=== PATIENT | female | born 1980 | race Hispanic/Latino ===

== ENCOUNTER 2020-01-09 09:53 | Emergency (ER) | payer OTHER, SELFPAY ==
[2020-01-09 10:03] VITALS: BP 129/90; PULSE 16; RESP 16; TEMP 36.5; O2SAT 97
--- NOTE | 2020-01-09 10:12 | ED.EXTPRO ---
HPI - Extremity Problem General Chief complaint: Extremity Injury, Lower Stated complaint: right foot heel pain Time Seen by Provider: 01/09/20 10:07 Source: patient and RN notes reviewed Mode of arrival: ambulatory Limitations: no limitations History of Present Illness HPI Narrative: Patient presents today complaining of heel pain x2 weeks that has been worsening since onset. Denies injury or trauma. Denies numbness or tingling in the foot or toes. She has tried no [id number] interventions or medications for pain prior to arrival. Pain increases with walking or standing. MD Complaint: extremity pain Related Data Allergies Allergy/AdvReac Type Severity Reaction Status Date / Time No Known Allergies Allergy Verified 06/09/19 09:59 Review of Systems Review of Systems: Narrative: CONSTITUTIONAL: Denies body aches, fever, chills, or sweats. EYES: Denies visual changes, redness, or discharge. ENT: Denies rhinorrhea, congestion, sore throat, or otalgia. CARDIOVASCULAR: Denies chest pain, palpitations, or edema. RESPIRATORY: Denies cough or dyspnea. GASTROINTESTINAL: Denies abdominal pain, nausea, vomiting, or diarrhea. GENITOURINARY: Denies dysuria or hematuria. SKIN: Denies rash, itching, or wounds. MUSCULOSKELETAL: Denies back pain, joint pain, or myalgia. Right heel pain NEUROLOGIC: Denies headache, numbness, tingling, or weakness. PSYCH: Denies depression or anxiety. PMFSH Comments At time of signature, I have reviewed and agree with nursing past medical, surgical, social and family history unless otherwise noted. Please see nursing chart for further information. There is no relevant family history pertinent to the presenting complaint Exam Narrative: Exam Narrative: GENERAL: Well-appearing, well-nourished, and in no acute distress. HEAD: Normocephalic, atraumatic. EYES: EOMI. No redness or drainage. Conjunctivae normal. ENT: Mucous membranes pink and moist. NECK: Normal AROM. CHEST: No respiratory distress. EXTREMITIES: Right foot: Tenderness to the right plantar fascia extending to the posterior heel. Distal sensation intact. Capillary refill normal. Pedal pulse normal. No edema or discoloration noted. Full range of motion of the toes and ankle. SKIN: Warm, dry, no rash. Capillary refill normal. Normal skin turgor. NEURO: No focal deficits. Alert and oriented x3. Gait steady. PSYCH: Normal affect. No signs of depression or anxiety. Course Vital Signs Vital signs: Vital Signs Temperature 97.7 F 01/09/20 10:03 Pulse Rate 16 L 01/09/20 10:03 Respiratory Rate 16 01/09/20 10:03 Blood Pressure 129/90 01/09/20 10:03 Pulse Oximetry 97 01/09/20 10:03 Temperature 97.7 F 01/09/20 10:03 Pulse Rate 16 L 01/09/20 10:03 Respiratory Rate 16 01/09/20 10:03 Blood Pressure 129/90 01/09/20 10:03 Pulse Oximetry 97 01/09/20 10:03 Reviewed. Pt has been instructed to follow up with her PCP regarding her elevated blood pressure today. MDM - Extremity (Nontraumatic) Differential Diagnosis Differential diagnosis: Likely gout, cellulitis, lower extremity edema and other (Foot sprain, plantar fasciitis) Critical Care Time Critical Care Time Critical Care Time: No Discharge Plan Discharge Clinical Impression: Plantar fasciitis of right foot Patient Disposition: Home, Self-Care Condition: Stable Instructions: Plantar Fasciitis (ED) Additional Instructions: Your symptoms are likely due to plantar fasciitis. Start an anti-inflammatory such as Aleve or ibuprofen to help with pain. Consider purchasing some silicone heel cups for your shoes. Stretch your heel and calf. Follow-up with your PCP or recreational aide in 1 to 2 weeks if symptoms are not improving. Your blood pressure was elevated above 120/80 today at Urgent Care. This puts you above the threshold for follow up. Please schedule a followup visit with your personal physician as soon as possible, for further evaluati
== END 2020-01-09 10:23 | disposition home or self-care (01) ==
PROVIDERS: Emergency Provider Nurse Practitioner
DX: M72.2 Plantar fascial fibromatosis (principal); Z98.84 Bariatric surgery status
CPT/HCPCS: 99211; G0463

== ENCOUNTER 2023-09-28 08:46 | Emergency (ER) | payer BC, SELFPAY ==
--- NOTE | 2023-09-28 08:53 | ED.URI ---
HPI - URI/Sore Throat General Chief Complaint: Upper Respiratory Infection Stated Complaint: Sinus History of Present Illness HPI Narrative: 43 y/o female presented for c/o sore throat, cough, and chest congestion for one week. Denies sob, wheezing, n/v/d/f/c. Taking Dayquil and Nyquil. Related Data Home Medications Medication Instructions Recorded Confirmed bupropion HCl 300 mg 24 hr tablet, 300 mg PO DAILY 09/28/23 09/28/23 extended release tirzepatide 10 mg/0.5 mL 1 mg subcut DIRECTED 09/28/23 09/28/23 subcutaneous pen injector (Mounjaro) Allergies Allergy/AdvReac Type Severity Reaction Status Date / Time No Known Allergies Allergy Verified 09/28/23 09:10 Review of Systems Review of Systems: CONSTITUTIONAL: Denies body aches, fever, chills, or sweats. EYES: Denies visual changes, redness, or discharge. ENT: Reports rhinorrhea, congestion, sore throat denies otalgia. CARDIOVASCULAR: Denies chest pain, palpitations, or edema. RESPIRATORY: reports cough Denies dyspnea. GASTROINTESTINAL: Denies abdominal pain, nausea, vomiting, or diarrhea. SKIN: Denies rash, itching, or wounds. MUSCULOSKELETAL: Denies back pain, joint pain, or myalgia. NEUROLOGIC: Denies headache Exam Narrative: GENERAL: well-appearing EYES: conjunctivae clear ENT: Mucous membranes moist. TM pearly garcia with normal light reflex bilaterally; no tragal tenderness. Oropharynx not erythematous without lesions. Tonsils enlarged and without exudate. No drooling, no hoarseness, no trismus, uvula midline. No tripod positioning, hot potato voice, or soft palate swelling. NECK: Supple. No lymphadenopathy CHEST: Clear to auscultation, breath sounds equal. No respiratory distress, speaks in full sentences. HEART: Regular rate and rhythm. No murmur heard. SKIN: Warm, dry, no rash. NEURO: Alert and oriented x3. Course Course Emergency Course: Patient is aware of diagnosis, understands and agrees to treatment plan. Anticipatory guidance given. Patient agrees to follow-up as directed and is aware of reasons to seek care at the emergency department. Portions of this record may have been created with voice recognition software Level of Care: Express Care Visit Vital Signs Vital signs: Vital Signs Temperature 97.8 F 09/28/23 09:06 Pulse Rate 73 09/28/23 09:06 Respiratory Rate 16 09/28/23 09:06 Blood Pressure 125/77 09/28/23 09:06 Pulse Oximetry 100 09/28/23 09:06 Oxygen Delivery Room Air 09/28/23 09:06 Temperature 97.8 F 09/28/23 09:06 Pulse Rate 73 09/28/23 09:06 Respiratory Rate 16 09/28/23 09:06 Blood Pressure 125/77 09/28/23 09:06 Pulse Oximetry 100 09/28/23 09:06 Oxygen Delivery Room Air 09/28/23 09:06 MDM - URI/Sore Throat MDM Narrative Medical decision making narrative: Neg flu, covid, strep result reviewed with pt. Advise supportive treatments. Patient is appropriate for outpatient treatment and follow-up. Differential Diagnosis Differential diagnosis: Likely upper respiratory infection, viral infection, bronchitis and pharyngitis Lab Data Labs: Influenza A Screen Negative Reference Range: Negative Influenza B Screen Negative Reference Range: Negative Strep Screen Presumptive Negative *(Reference Range: Negative)* Discharge Plan Discharge Clinical Impression: Viral infection Patient Disposition: Home, Self-Care Condition: Stable Instructions: Antibiotic Form, Upper Respiratory Infection (ED) Additional Instructions: negative flu, COVID Rapid strep swab was negative today You will be notified in a few days if the culture comes back positive for strep, and appropriate antibiotics will be called in at that time. if symptoms are due to a viral illness, it is not
[2023-09-28 09:06] VITALS: BP 125/77; PULSE 73; RESP 16; TEMP 36.6; O2SAT 100
== END 2023-09-28 09:35 | disposition home or self-care (01) ==
PROVIDERS: Emergency Provider Nurse Practitioner Family
DX: B34.9 Viral infection, unspecified (principal); Z20.822 Contact with and (suspected) exposure to COVID-19
CPT/HCPCS: 87081; 87426; 87804; 87880; 99213; G0463